=== PATIENT | male | born 1985 | race Caucasian/White ===

== ENCOUNTER → 2020-08-29 | Outpatient (CLI) | payer OTHER ==
--- NOTE | 2020-08-29 14:06 | REP ---
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 COMPARISON: None. TECHNIQUE: Sagittal and axial T1 and T2-weighted scans are acquired in the usual fashion with and without fat saturation. Sequences include spin echo, turbo spin-echo, and STIR imaging sequences. FINDINGS: Lumbar vertebral body heights are preserved. Alignment is normal. Pedicles and posterior elements are intact. There is no evidence of spondylolysis or spondylolisthesis. Tip of the conus medullaris is normal in position and appearance at L1. No extra-spinal abnormality is appreciated. Axial and sagittal images taken at the L1-2 level show no abnormality. At L2-L3, there is mild degenerative disc narrowing. There is a central focal disc protrusion which produces mild central ventral thecal sac compression. No foraminal narrowing is seen. No andres central canal stenosis is observed. At L3-L4, there is also degenerative narrowing and decreased signal intensity in the 3 4 disc. At L3-4 there is a left paracentral focal disc protrusion which is broad-based. This indents the ventral margin of the thecal sac as well. No central canal stenosis or foraminal narrowing is seen. At L4-5, there is minimal central disc bulging no focal protrusion is seen. There is mild L4-5 facet hypertrophy bilaterally. No neural foraminal narrowing is seen. At L5-S1, there is mild bilateral L5-S1 facet arthropathy. No disc protrusion is seen. No central canal or neural foraminal stenosis noted. IMPRESSION: There are focal central focal disc protrusions at L3-4 and L2-3 as above. Early degenerative disc narrowing and desiccation are seen in these 2 discs. 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 <Electronically signed by Jeremy Chapin > 08/29/20 [id number]
== END ==
LOC: M PLAIMG 12:52
PROVIDERS: ATTEND Nurse Practitioner Family
DX: M47.817 Spondylosis without myelopathy or radiculopathy, lumbosacral region (principal)

== ENCOUNTER → 2023-01-26 | Outpatient (REF) | LOC: M PLAIMG 13:48 | PROVIDERS: ATTEND Internal Medicine | DX: R52 Pain, unspecified (principal) ==

== ENCOUNTER → 2023-06-29 | Outpatient (REF) | LOC: M PLAIMG 11:33 | PROVIDERS: ATTEND Internal Medicine | DX: R52 Pain, unspecified (principal) ==

== ENCOUNTER → 2024-05-01 | Outpatient (CLI) | payer OTHER | LOC: M RAD 08:31 | PROVIDERS: ATTEND Surgery | DX: L05.91 Pilonidal cyst without abscess (principal) ==